=== PATIENT | male | born 1990 | race African-American/Black ===

== ENCOUNTER 2016-07-11 17:49 | Emergency (ER) | payer OTHER ==
[~2016-07-11] VITALS: Ht 167.6 cm; Wt 59.0 kg
[2016-07-11 19:45] VITALS: BP 133/64; TEMP 98.5
== END 2016-07-11 19:46 | disposition home or self-care (01) ==
LOC: ED 17:49
DX: L50.9 Urticaria, unspecified (principal)
CPT/HCPCS: 36415; 96361; 96374; 96375; 99284; J0171; J1100; J1200; J2405; J3490